=== PATIENT | male | born 1980 | race Caucasian/White ===

== ENCOUNTER 2021-01-11 05:16 | Day surgery (SDC) | payer OTHER ==
[~2021-01-11] VITALS: Ht 182.9 cm; Wt 109.3 kg
[~2021-01-11 05:16] MED LIST: CARDIZEM120 MG PO; LISINOPRIL2.5 MG PO; METHSCOPOLAMINE PO
[2021-01-11 05:35] LABS: BASOPHILS 0.3 % (0-2); EOSINOPHILS 2.1 % (0-7); HEMATOCRIT 47.8 % (42.0-54.0); IMMATURE GRANULOCYTES 0.1 % (0-5); LYMPHOCYTE ABS# 2.47 10x3/uL (1.32-3.57); LYMPHOCYTES 34.7 % (15-50); MCH 29.9 pg (26.0-34.0); MCHC 33.5 g/dL (31.0-37.0); MCV 89.2 fL (80.0-100.0); MEAN PLATELET VOLUME 10.3 fL (7.4-10.4); MONOCYTES 9.3 % (2-11); NEUTROPHILS 53.5 % (40-80); PLATELET COUNT 232 10x3/uL (130-400); RBC 5.36 10x6/uL (4.20-6.10); RDW 12.5 % (11.5-14.5); WBC 7.1 10x3/uL (4.8-10.8)
[2021-01-11 05:48] LABS: CALC OSMOLALITY 284 mosm/kg (275-300); CALCIUM 8.6 mg/dL (8.5-10.1); CARBON DIOXIDE 29.7 mmol/L (21.0-32.0); CHLORIDE - SERUM 105 mmol/L (98-107); GLUCOSE 101 mg/dL (74-106); POTASSIUM - SERUM 3.8 mmol/L (3.5-5.1); SODIUM 143 mmol/L (136-145); UREA NITROGEN 12 mg/dL (7-18); eGFR NON AFRICAN AMERICAN 87 mL/min (90-120)
[2021-01-11 05:56] LABS: SARS-CoV-2 ANTIGEN NEGATIVE- SARS-COV-2 (NEGATIVE)
[2021-01-11 06:47] VITALS: BP 124/89; Ht 182.9 cm; Wt 109.3 kg
--- NOTE | 2021-01-11 10:55 | NUR ---
IV D/C'D WITH CANNULA INTACT, PRESSURE HELD AND DRSG PLACED. DISCHARGE INSTRUCTIONS GIVEN AND PT AND VERBALIZED AN UNDERSTANDING. DISCHARGED HOME IN STABLE CONDITION. STATES PAIN NOW 11/28
--- NOTE | 2021-01-15 08:45 | OP ---
PATIENT NAME: GEETA ORDOÑEZ MEDICAL RECORD: [id number] :78 LOCATION:[facility] ADMISSION DATE: SURGEON: JULIETA GILLIS MD DATE OF OPERATION: 01/11/2021 PREOPERATIVE DIAGNOSES: 1. Right knee pain. 2. Medial meniscus tear. 3. Chondromalacia. POSTOPERATIVE DIAGNOSES: 1. Right knee pain. 2. Medial meniscus tear. 3. Chondromalacia. PROCEDURE PERFORMED: Right knee scope with partial medial meniscectomy and chondroplasty. INDICATIONS: Mr. Ordoñez is a 41-year-old male who injured his right knee in a work, twisting accident at work approximately 1 month ago. He has been having pain and mechanical symptoms since that time. MRI showed evidence of medial meniscus tear. Arrangements were made for him to come to the operating room today for knee arthroscopy. Risks, benefits, and alternatives of surgery were discussed with the patient and consent was obtained. DESCRIPTION OF PROCEDURE: The patient was met in the holding area where his identity and confirmation of procedure was performed. The right lower extremity was marked. He was taken to the operating room where he was placed supine on the operating table. Anesthesia was administered. Tourniquet was applied to the right thigh and the right leg was positioned in the leg wheatley. Right lower extremity was prepped and draped in a sterile fashion. The patient received preoperative antibiotics and timeout was performed prior to initiating the case. Upon administration of the case, the leg was exsanguinated and the tourniquet was raised. Total tourniquet time was 22 minutes. We began with placement of our superior medial inflow portal. Inserted the cannula and filled the knee with fluid. We then placed our anterior lateral portal, inserted the camera and placed our anterior medial portal under direct visualization. Diagnostic knee arthroscopy was performed. There was grade II chondromalacia at the undersurface of the patella. The trochlea was in good condition. There were some loose fragments throughout the knee. Grade II chondromalacia of the medial femoral condyle. There was a tear in the posterior horn of the medial meniscus. Medial tibial plateau was in good condition. ACL was intact. The lateral compartment was in good condition. We turned back to the medial compartment with the biter and shaver, performed a partial medial meniscectomy. Chondroplasty was also performed at the medial femoral condyle. We then moved to the patellofemoral compartment and performed chondroplasty of the undersurface of the patella and this completed our procedure. Before and after images were obtained. The instruments were removed and fluid was drained from the knee. Portal sites were infiltrated with 0.25% Marcaine with epinephrine. These were then closed with nylon suture. A sterile dressing was placed. The patient was turned back over to anesthesia where he was awakened, extubated, and taken to recovery room in stable condition. POSTOPERATIVE PLAN: The patient is going to return home with his family today. He may be weightbearing as tolerated on the right lower extremity and can use OPERATIVE REPORT [id number] GEETA ORDOÑEZ crutches as needed. I would like to get him started with physical therapy Thursday or Thursday. He may return to work, but he needs to be safe to drive in order to operate a vehicle. Work restrictions will include no prolonged standing, lifting, squatting. Sedentary duty. We will see him back in clinic in 2 weeks. COMPLICATIONS: None. ESTIMATED BLOOD LOSS: 5 mL. ANESTHESIA: General LMA. TRANSINT:[id number] Voice Confirmation ID: [id number] DOCUMENT ID: [id number] JULIETA GILLIS MD at 0845 CC: [id number] DICTATION DATE: 01/11/21 0851 URINALYSIS TECHNICIAN: 01/11/21 1803 [facility] 01/11/[address] [id number]
== END 2021-01-11 10:20 | disposition home or self-care (01) ==
LOC: D.OPS 05:16
PROVIDERS: Anesthesiology; ATTEND Orthopaedic Surgery
DX: M25.561 Pain in right knee (principal); S83.241A Other tear of medial meniscus, current injury, right knee, initial encounter; X58.XXXA Exposure to other specified factors, initial encounter; M94.261 Chondromalacia, right knee